=== PATIENT | female | born 1970 | race Caucasian/White ===

== ENCOUNTER 2016-05-20 15:39 | Emergency (ER) | payer OTHER ==
[2016-05-20 16:37] LABS: URINE BILIRUBIN NEGATIVE (NEGATIVE); URINE BLOOD TRACE (NEGATIVE); URINE KETONE TRACE (NEGATIVE); URINE LEUKOCYTE ESTERASE TRACE (NEGATIVE); URINE NITRATE NEGATIVE (NEGATIVE); URINE PROTEIN TRACE (NEGATIVE); UROBILINOGEN NORMAL mg/dL (<1.0)
[2016-05-20 16:51] LABS: BASO % 0.4 % (0.1-1.2); EOS # 0.5 10_X3_uL (0.0-0.4); EOS % 5.9 % (0.7-5.8); GRAN # 5.7 10_X3_uL (1.6-6.1); GRAN % 62.1 % (34.0-71.1); HEMOGLOBIN 14.7 g/dL (11.2-15.7); LYMPH # 2.6 10_X3_uL (1.2-3.7); LYMPH % 28.7 % (19.3-51.7); MEAN CORPUSCULAR HEMOGLOBIN 31.8 pg (27.0-33.0); MEAN CORPUSCULAR VOLUME 90.9 fL (79-95); MEAN PLATELET VOLUME 10.1 fl (7.5-11.5); MONO # 0.3 10_X3_uL (0.2-0.9); MONO % 2.9 % (4.7-12.5); PLATELET COUNT 252 x10_3/uL (182-369); RED BLOOD COUNT 4.62 x10_6/uL (3.9-5.2); RED CELL DISTRIBUTION WIDTH 12.7 % (11.7-14.4); WHITE BLOOD COUNT 9.2 x10_3/uL (4.0-10.0)
[2016-05-20 17:44] LABS: URINE BACTERIA TRACE (NONE SEEN); URINE GLUCOSE (UA) 1000 mg/dL (NORMAL); URINE MUCUS TRACE; URINE RBC RARE /[HPF] (0-2); URINE WBC 0-5 /[HPF] (0-5)
== END 2016-05-20 18:44 | disposition home or self-care (01) ==
LOC: ER 15:39
PROVIDERS: General Practice
DX: N39.0 Urinary tract infection, site not specified (principal); M54.5 Low back pain; J02.9 Acute pharyngitis, unspecified; R10.30 Lower abdominal pain, unspecified; E66.01 Morbid (severe) obesity due to excess calories; R80.9 Proteinuria, unspecified; K80.80 Other cholelithiasis without obstruction; M51.36 Other intervertebral disc degeneration, lumbar region; Z79.899 Other long term (current) drug therapy; Z79.84 Long term (current) use of oral hypoglycemic drugs
CPT/HCPCS: 36415; 72128; 72131; 74150; 81001; 81025; 85025; 87070; 87880; 99070; 99283-25